=== PATIENT | male | born 2000 | race Caucasian/White ===

== ENCOUNTER 2023-02-06 07:05 | Emergency (ER) | payer BC, OTHER ==
[~2023-02-06] VITALS: Ht 172.7 cm; Wt 92.8 kg
[~2023-02-06 07:05] MED LIST: ACET12.57 PO
[2023-02-06 07:06] VITALS: TEMP 98
[2023-02-06] MEDS ORDERED: acetaminophen 325mg tablet PO STA (08:11)
[2023-02-06] MEDS ORDERED: ibuprofen tablet 400 MG TABLET PO ONE (08:15)
[2023-02-06] MEDS ORDERED: LIDOCAINE IV ONE (09:05)
[2023-02-06] MEDS ORDERED: NORMAL SALINE IV ONE (09:05)
[2023-02-06] MEDS ORDERED: LIDOcaine 1% 30ml preserv. free vial SQ STA (09:33)
[2023-02-06 11:23] VITALS: BP 120/64; PULSE 70; RESP 16; O2SAT 100
== END 2023-02-06 11:26 | disposition home or self-care (01) ==
LOC: ER 07:06
DX: M25.451 Effusion, right hip (principal); Z79.899 Other long term (current) drug therapy
CPT/HCPCS: 20610; 73560; 99285; A6449

== ENCOUNTER 2023-04-22 05:45 | Emergency (ER) | payer BC ==
[~2023-04-22] VITALS: Ht 172.7 cm; Wt 88.6 kg
[2023-04-22] MEDS: LIDOcaine 1% W/epiNEPHrine 1:100,000 20ml vial IJ ONE (10:31)
[2023-04-22] MEDS: triamcinolone acetonide 40mg/ml inj IJ ONE (11:00)
[2023-04-22 11:42] VITALS: BP 137/71; PULSE 78; RESP 16; TEMP 98.3; O2SAT 99
== END 2023-04-22 11:44 | disposition home or self-care (01) ==
LOC: ER 05:46
DX: M25.461 Effusion, right knee (principal); M25.561 Pain in right knee; Z79.1 Long term (current) use of non-steroidal anti-inflammatories (NSAID)
CPT/HCPCS: 20610; 99283; A6449

== ENCOUNTER → 2023-04-26 | Outpatient (CLI) | payer BC | END | disposition home or self-care (01) | LOC: RAD 15:44 | PROVIDERS: ATTEND Family Medicine Hospice and Palliative Medicine | DX: M71.21 Synovial cyst of popliteal space [Baker], right knee (principal); M25.461 Effusion, right knee; M25.861 Other specified joint disorders, right knee | CPT/HCPCS: 73721 ==

== ENCOUNTER 2023-05-11 06:17 | Emergency (ER) | payer BC ==
[~2023-05-11] VITALS: Ht 172.7 cm; Wt 92.9 kg
[2023-05-11] MEDS: HYDROcodone/acetaminophen 5mg/325mg tablet PO ONE (07:05)
[2023-05-11 08:05] VITALS: BP 125/69; PULSE 92; RESP 14; TEMP 98; O2SAT 97
== END 2023-05-11 08:07 | disposition home or self-care (01) ==
LOC: ER 06:18
DX: S76.811A Strain of other specified muscles, fascia and tendons at thigh level, right thigh, initial encounter (principal); X58.XXXA Exposure to other specified factors, initial encounter; Y93.89 Activity, other specified; Y92.89 Other specified places as the place of occurrence of the external cause; Y99.8 Other external cause status
CPT/HCPCS: 29505; 73564; 99283

== ENCOUNTER 2023-05-14 09:00 | Emergency (ER) | payer BC ==
[~2023-05-14] VITALS: Ht 172.7 cm; Wt 90.7 kg
[2023-05-14 09:09] VITALS: TEMP 98.2
[2023-05-14 11:24] VITALS: BP 139/94; PULSE 94; RESP 17; O2SAT 100
== END 2023-05-14 11:56 | disposition home or self-care (01) ==
LOC: ER 09:00
DX: M25.462 Effusion, left knee (principal); M25.562 Pain in left knee
CPT/HCPCS: 73564; 99284; A6449